=== PATIENT | male | born 1965 | race Caucasian/White ===

== ENCOUNTER → 2023-07-29 | Outpatient (CLI) | payer OTHER ==
--- NOTE | 2023-07-29 09:40 | MR ---
EXAMINATION TYPE: MR Prostate wo/w con DATE OF EXAM: 07/29/2023 7:43 AM COMPARISON: None. CLINICAL INDICATION:Male, 58 years old with history of C61 PROSTATE CA; Prostate Cancer, Elevated PSA TECHNIQUE: Multi-planar, multi-sequence imaging of the pelvis is performed prior to and following the uncomplicated administration of bolus intravenous gadolinium. CONTRAST: 9 [facility]ist Interpretive Criteria: PI-RADS v2.1 SERUM PSA: 9.3 on February 2023. 10.86 on April 2023 SURGICAL PATHOLOGY: No data available. FINDINGS: Prostatic dimensions: 4.6 x 5.7 x 4.2 cm. Ellipsoid Volume:57.66 (PSA density=0.19 ng/mL/mL) CENTRAL GLAND (Central and Transition Zones/CZ+TZ): Right central gland mid gland/apex 22 x 14 mm high DWI and low ADC signal low T2 signal lesion. (PI-R ADS 5) PERIPHERAL ZONE (PZ): Bilateral linear, indistinct wedgelike areas of low ADC, and low T2 signal, No evidence of masslike a bnormality, or localized perfusional hypervascularity, to further suggest a focus of clinically signi ficant prostate cancer. (PI-RADS 2) SEMINAL VESICLES (SV): Symmetric and unremarkable. PERIPROSTATIC TISSUES: Unremarkable. LYMPH NODES: No enlarged pelvic lymph node. REMAINING PELVIS: Bladder wall is within normal limits given distention. No abnormal free or organized intrapelvic fluid collection. No pathologic bowel dilation or mural thickening. Colonic diverticula are present. No hernia visualized OSSEOUS STRUCTURES: No suspicious osseous abnormality. IMPRESSION: PI-RADS 5 lesion right central mid gland lesion measuring 22 x 14 mm.. No suspicious osseous lesion. No lymphadenopathy. No evidence of prostate adenocarcinoma involving the periprostatic tissues.
== END | disposition home or self-care (01) ==
LOC: RADMRIMAIN 06:47
PROVIDERS: ATTEND Urology
DX: N42.89 Other specified disorders of prostate (principal); C61 Malignant neoplasm of prostate; R97.20 Elevated prostate specific antigen [PSA]
CPT/HCPCS: 72197; A9585